=== PATIENT | female | born 1990 | race Caucasian/White ===

== ENCOUNTER 2018-06-09 16:53 | Emergency (ER) | payer OTHER ==
--- NOTE | 2018-06-09 17:07 | ED Physician Documentation ---
PD HPI FEMALE - Stated complaint Stated Complaint: FEM - Chief complaint Chief Complaint: UTI - History obtained from History obtained from: Patient - History of Present Illness Timing - onset: How many days ago (4-5) Timing - duration: Days (4-5) Timing - details: Gradual onset, Still present (worse the past 2 days, despite starting Macrobid 2 days ago. Using Azo without much relief.) Associated symptoms: Dysuria, Urinary frequency, Hematuria. No: Fever, Back pain, Vaginal pain, Vaginal discharge Contributing factors: Sexually active. No: Exposed to STD Similar symptoms before: Has not had sx before Recently seen: No: Clinic (Had Telemedicine consult with Rx of Macrobid and Phenazopyridine 2 days ago. 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 Vault with moderate thicker white discharge c/w yeast. No cervicitis. No appearance of BV. Swabs obtained. ) - Rectal Rectal: Deferred - Back Back: No CVA TTP - Derm Derm: Normal color, Warm and dry - Neuro Neuro: Alert and oriented X 3, No motor deficit, Normal speech Results - Vitals Vitals: Vital Signs - 24 hr 06/09/18 06/09/18 17:02 18:28 Temperature 36.4 C L 36.6 C Heart Rate 75 79 Respiratory 16 16 Rate Blood Pressure 123/65 108/82 H O2 Saturation 96 96 Oxygen O2 Source Room air - Labs Labs: Microbiology 06/09/18 18:10 Wet Prep - Final Genital - Vaginal Laboratory Tests 06/09/18 17:13 Urine Color DK. ORANGE Urine Clarity HAZY Urine pH Ur Specific [employer] Urine Protein Urine Glucose (UA) Urine Ketones Urine Occult Blood Urine Nitrite Urine Bilirubin Urine Urobilinogen Ur Leukocyte Esterase Urine RBC 0-5 Urine WBC 4-5 Ur Squamous Epith Cells MOD Squamous H Urine Bacteria Few Ur Microscopic Review INDICATED Urine Culture Comments NOT INDICATED PD MEDICAL DECISION MAKING - ED course Complexity details: considered differential (vag exam does appear c/w yeast vaginitis. UA not seeming positive, but does not have obvious vaginitis enough for symptoms. The Macrobid may be improving the UA enough but not clearing the infection per se. ), d/w patient - Sepsis Event Vital Signs: Vital Signs - 24 hr 06/09/18 06/09/18 17:02 18:28 Temperature 36.4 C L 36.6 C Heart Rate 75 79 Respiratory 16 16 Rate Blood Pressure 123/65 108/82 H O2 Saturation 96 96 Oxygen O2 Source Room air Departure - Departure Disposition: 01 Home, Self Care Clinical Impression: Dysuria, Yeast vaginitis Urinary tract infection Qualifiers: Urinary tract infection type: acute cystitis Hematuria presence: without hematuria Qualified Code(s): N30.00 - Acute cystitis without hematuria Instructions: ED UTI Cystitis Female Follow-Up: [facility] [Provider Group] [facility] [place] [facility] [Provider Group] Prescriptions: Sulfamethox/Trimeth 800/160 [Bactrim Ds 800/160] 1 each PO BID #14 tablet Comments: It does appear like some yeast infection vaginally. This can be more likely a result of the couple of days of antibiotics you have been on. It may actually be the cause of some of the dysuria he has been having. At this point with the continued discomfort urinating, I would change from the Macrobid antibiotic to slightly stronger one called Bactrim twice daily for 5-7 days until you are feeling all better. He can take a repeat fluconazole antifungal tablet at the end of that course. The vaginal exam does not look like a bacterial vaginitis but the cultures from that will result in about 3 days and will call you if we need to change antibiotics. Discharge Date/Time: 06/09/18 18:28
[2018-06-09 17:43] LABS: CLARITY,URINE HAZY (CLEAR)
[2018-06-09 17:45] LABS: RBC,URINE 0-5 /HPF (0-5); SQUAMOUS EPITHELIAL CELL,UR MOD Squamous (<= Few)
[2018-06-09 17:46] LABS: BACTERIA,URINE Few /HPF (None Seen)
[2018-06-09] MEDS ORDERED: SULFAMETH/TRIMETH DS 800/160 MG TABLET PO STA (18:14)
[2018-06-09] MEDS ORDERED: FLUCONAZOLE 100 MG TABLET PO STA (18:14)
[2018-06-09 18:29] VITALS: BP 108/82
== END 2018-06-09 18:28 | disposition home or self-care (01) ==
LOC: ED 16:53
DX: R30.0 Dysuria (principal); B37.3 Candidiasis of vulva and vagina; N30.00 Acute cystitis without hematuria
CPT/HCPCS: 81001; 87210; 87491; 87591; 99283; A9270; 81003; 81025; 87086

== ENCOUNTER 2018-10-30 11:24 | Outpatient (CLI) | payer MEDICAID ==
[2018-10-30 17:52] LABS: BASOPHILS % (AUTO) 0.6 %; EOSINOPHILS # (AUTO) 0.1 10^3/uL (0.0-0.7); EOSINOPHILS % (AUTO) 1.5 %; HGB - HEMOGLOBIN 14.2 g/dL (12.0-16.0); LYMPHOCYTES # (AUTO) 2.1 10^3/uL (1.5-3.5); LYMPHOCYTES % (AUTO) 40.9 %; MEAN CORPUSCULAR HEMOGLOBIN 30.9 pg (27.0-31.0); MEAN CORPUSCULAR VOLUME 93.6 fL (81.0-99.0); MEAN PLATELET VOLUME 8.8 fL (7.9-10.8); MONOCYTES # (AUTO) 0.4 10^3/uL (0.0-1.0); MONOCYTES % (AUTO) 8.3 %; NEUTROPHILS # (AUTO) 2.6 10^3/uL (1.5-6.6); NEUTROPHILS % (AUTO) 48.7 %; PLT - PLATELET COUNT 288 10^3/uL (130-450); RED CELL DISTRIBUTION WIDTH 12.9 % (12.0-15.0); WHITE BLOOD COUNT 5.3 x10^3/uL (4.8-10.8)
[2018-10-30 17:53] LABS: CALCIUM 9.1 mg/dL (8.5-10.3); CARBON DIOXIDE - CO2 29 mmol/L (21-32); CHLORIDE 104 mmol/L (101-111); GLUCOSE 80 mg/dL (70-100); SODIUM 137 mmol/L (135-145)
[2018-10-30 18:04] LABS: ALBUMIN 4.3 g/dL (3.2-5.5); ALBUMIN/GLOBULIN RATIO 1.5 (1.0-2.2); ALKALINE PHOSPHATASE 59 IU/L (42-121); ALT ALANINE AMINOTRANSFERASE 17 IU/L (10-60); AST ASPARTATE AMINOTRANSFERASE 14 IU/L (10-42); BILIRUBIN,TOTAL 0.7 mg/dL (0.2-1.0); BUN - BLOOD UREA NITROGEN 12 mg/dL (6-20); CHOL/HDL RATIO 3.8 (<4.4); CHOLESTEROL 176 mg/dL; CREATININE < 0.3 mg/dL (0.4-1.0); HCG,QUALITATIVE BLOOD NEGATIVE; HDL CHOLESTEROL 46 mg/dL; LDL CHOLESTEROL,CALCULATED 115 mg/dL; LDL/HDL RATIO 2.5 (<4.4); TOTAL PROTEIN 7.2 g/dL (6.7-8.2); VLDL CHOLESTEROL 15 mg/dL
[2018-10-30 18:33] LABS: HB2 TOTAL 15.4 g/dL; HEMOGLOBIN A1C 0.48 g/dL
[2018-10-31 13:37] LABS: HEPATITIS C ANTIBODY NON-REACTIVE (NON-REACTIVE)
[2018-11-01 19:07] LABS: ANA SCREEN POSITIVE (NEGATIVE)
== END 2018-10-30 11:25 | disposition home or self-care (01) ==
LOC: LAB.F 11:24
PROVIDERS: ATTEND Registered Nurse
DX: Z71.89 Other specified counseling (principal); R55 Syncope and collapse; M25.50 Pain in unspecified joint; F43.12 Post-traumatic stress disorder, chronic; R53.83 Other fatigue; R07.89 Other chest pain
CPT/HCPCS: 36415; 80050; 80061; 83036; 83721; 84703; 86038; 86803

== ENCOUNTER 2018-11-24 14:57 | Outpatient (CLI) | payer MEDICAID | END 2018-11-24 14:58 | disposition home or self-care (01) | LOC: DI 14:57 | PROVIDERS: ATTEND Registered Nurse | DX: R07.89 Other chest pain (principal); R55 Syncope and collapse; R53.83 Other fatigue | CPT/HCPCS: 93306 ==

== ENCOUNTER 2019-12-29 17:44 | Outpatient (CLI) | payer MEDICAID ==
--- NOTE | 2019-12-30 14:42 | XRAY Report ---
Reason: WORSENING BILAT JAW PAIN Procedure Date: 12/29/2019 Accession Number: [id number] / [id number] Procedure: XR - Cervical Spine Complete CPT Code: Final Report FULL RESULT: EXAM: CERVICAL SPINE RADIOGRAPHY EXAM DATE: 12/29/2019 06:31 PM. CLINICAL HISTORY: WORSENING BILAT JAW PAIN. COMPARISONS: XR CERVICAL SPINE 2 VIEW 09/05/2019 11:54 AM. TECHNIQUE: 5 views. 7 films FINDINGS: Alignment: Generalized cervical kyphosis. Appearance is similar to prior exam. 12 degrees convex right cervical scoliosis. Mild convex left upper thoracic scoliosis. Bones: The cervical vertebral bodies and posterior elements are well-visualized from the skull base through C7-T1. No radiographic evidence for fractures or bone lesions. Disks: Normal. Disk heights are maintained. Facets: Hypertrophic changes at C7-T1 level. Neural Foramina: The neural foramina have bony patency bilaterally. Soft Tissues: Normal. No prevertebral soft tissue swelling. The visualized lung apices are clear. IMPRESSION: 1. C7-T1 facet joint degenerative changes. 2. Scoliosis. RADIA
--- NOTE | 2019-12-30 14:44 | XRAY Report ---
Reason: WORSENING BILAT JAW PAIN Procedure Date: 12/29/2019 Accession Number: [id number] / [id number] Procedure: XR - TMJ's-Temporal Mandibular Jts CPT Code: 22000 Final Report FULL RESULT: EXAM: BILATERAL TEMPOROMANDIBULAR JOINT RADIOGRAPHY EXAM DATE: 12/29/2019 06:31 PM. CLINICAL HISTORY: WORSENING BILAT JAW PAIN. COMPARISON: None. TECHNIQUE: 6 views including open and closed mouth. FINDINGS: Bones: Normal. No fractures or bone lesions. Temporomandibular Joints: Normal. The temporomandibular joints are normally located and symmetric. Sinuses: Normal. No opacities or fluid levels. Other: Normal. No soft tissue swelling. IMPRESSION: Normal temporomandibular joint radiography. If there is persistent clinical concern, consider MRI. RADIA
== END 2019-12-29 17:45 | disposition home or self-care (01) ==
LOC: DI 17:44
DX: M47.813 Spondylosis without myelopathy or radiculopathy, cervicothoracic region (principal); M41.9 Scoliosis, unspecified; R68.84 Jaw pain
CPT/HCPCS: 70330; 72050

== ENCOUNTER 2020-11-11 09:12 | Outpatient (CLI) | payer MEDICAID | END 2020-11-11 09:13 | disposition home or self-care (01) | LOC: COV 09:12 | DX: R50.9 Fever, unspecified (principal); M79.10 Myalgia, unspecified site; R11.0 Nausea; Z20.828 Contact with and (suspected) exposure to other viral communicable diseases ==

== ENCOUNTER 2022-10-22 19:55 | Emergency (ER) | payer MEDICAID ==
[2022-10-22 20:48] LABS: BASOPHILS % (AUTO) 0.4 %; EOSINOPHILS # (AUTO) 0.1 10^3/uL (0.0-0.7); EOSINOPHILS % (AUTO) 0.9 %; HCT - HEMATOCRIT 39.8 % (37.0-47.0); HGB - HEMOGLOBIN 13.1 g/dL (12.0-16.0); LYMPHOCYTES % (AUTO) 26.4 %; MEAN CORPUSCULAR HEMOGLOBIN 29.4 pg (27.0-31.0); MEAN CORPUSCULAR HGB CONC 32.9 g/dL (32.0-36.0); MEAN CORPUSCULAR VOLUME 89.4 fL (81.0-99.0); MEAN PLATELET VOLUME 9.6 fL (7.9-10.8); MONOCYTES # (AUTO) 0.9 10^3/uL (0.0-1.0); MONOCYTES % (AUTO) 7.8 %; NEUTROPHILS # (AUTO) 7.3 10^3/uL (1.5-6.6); NEUTROPHILS % (AUTO) 64.1 %; PLT - PLATELET COUNT 357 10^3/uL (130-450); RED BLOOD COUNT 4.45 10^6/uL (4.20-5.40); RED CELL DISTRIBUTION WIDTH 12.5 % (12.0-15.0); WHITE BLOOD COUNT 11.4 x10^3/uL (4.8-10.8)
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
[2022-10-22 21:08] LABS: ALBUMIN 4.2 g/dL (3.2-5.5); ALBUMIN/GLOBULIN RATIO 1.4 (1.0-2.2); BILIRUBIN,TOTAL 0.4 mg/dL (0.2-1.0); CALCIUM 9.6 mg/dL (8.5-10.3); CREATININE 0.9 mg/dL (0.4-1.0); POTASSIUM 3.9 mmol/L (3.5-5.0); TOTAL PROTEIN 7.1 g/dL (6.7-8.2)
--- NOTE | 2022-10-22 21:09 | XRAY Report ---
PROCEDURE: Chest 1 View X-Ray INDICATIONS: Chest Pain TECHNIQUE: One view of the chest was acquired. COMPARISON: None. FINDINGS: Surgical changes and devices: None. Lungs and pleura: No pleural effusions or pneumothorax. Lungs are clear. Mediastinum: Mediastinal contours appear normal. Heart size is normal. Bones and chest wall: No suspicious bony lesions. Overlying soft tissues appear unremarkable. IMPRESSION: 1. No acute cardiopulmonary disease. Reviewed by: Shar Bryant MD on 10/22/2022 9:08 PM [facility] Approved by: Shar Bryant MD on 10/22/2022 9:08 PM [facility] Station ID: [id number]
[2022-10-22 21:52] VITALS: BP 106/61
== END 2022-10-22 21:53 | disposition home or self-care (01) ==
LOC: ED 19:55
DX: R07.89 Other chest pain (principal)
CPT/HCPCS: 36415; 80053; 83690; 84484; 85025; 93005; 99282; 99284

== ENCOUNTER 2023-07-05 13:21 | Outpatient (CLI) | payer MEDICAID ==
[2023-07-05 20:36] LABS: BILIRUBIN,URINE NEGATIVE (NEGATIVE); GLUCOSE, URINE (UA) NEGATIVE (NEGATIVE); KETONES,URINE (UA) NEGATIVE (NEGATIVE); LEUKOCYTE ESTERASE, URINE TRACE (NEGATIVE); NITRITE,URINE NEGATIVE (NEGATIVE); OCCULT BLOOD,URINE TRACE-INTA (NEGATIVE); PROTEIN,URINE NEGATIVE (NEGATIVE); UROBILINOGEN,URINE 0.2 (NORMAL) E.U./dL (NORMAL)
[2023-07-05 20:37] LABS: CLARITY,URINE HAZY (CLEAR)
[2023-07-05 21:35] LABS: BACTERIA,URINE Rare /HPF (None Seen); RBC,URINE 0-5 /HPF (0-5); SQUAMOUS EPITHELIAL CELL,UR RARE Squamous (<= Few); WBC,URINE >25 /HPF (0-5)
== END 2023-07-05 13:22 | disposition home or self-care (01) ==
LOC: LAB.S 13:21
PROVIDERS: ATTEND Family Medicine
DX: R39.9 Unspecified symptoms and signs involving the genitourinary system (principal)
CPT/HCPCS: 81001; 87077; 87086

== ENCOUNTER 2023-09-03 12:41 | Outpatient (CLI) | payer MEDICAID ==
[2023-09-03 21:30] LABS: CHLAMYDIA TRACHOMATIS DNA NEGATIVE (NEGATIVE); NEISSERIA GONORRHOEAE DNA NEGATIVE (NEGATIVE); TRICHOMONAS VAGINALIS DNA NEGATIVE (NEGATIVE)
[2023-09-04 02:08] LABS: HBsAG SCREEN Negative (Negative); HEPATITIS B SURFACE AB QUANT <3.1 mIU/mL (Immunity>9.9)
[2023-09-04 03:09] LABS: HCV AB Non Reactive (Non Reactive); HIV SCREEN 4TH GENERATION Non Reactive (Non Reactive)
[2023-09-04 17:09] LABS: TREPONEMA PALLIDUM ANTIBODIES Non Reactive (Non Reactive)
== END 2023-09-03 12:42 | disposition home or self-care (01) ==
LOC: LAB.S 12:41
PROVIDERS: ATTEND Family Medicine
DX: Z20.2 Contact with and (suspected) exposure to infections with a predominantly sexual mode of transmission (principal)
CPT/HCPCS: 36415; 86317; 86780; 86803; 87340; 87389; 87491; 87591; 87661

== ENCOUNTER 2023-10-25 12:08 | Outpatient (CLI) | payer MEDICAID ==
[2023-10-25 15:23] LABS: ALBUMIN 4.8 g/dL (3.2-5.5); ALBUMIN/GLOBULIN RATIO 1.8 (1.0-2.2); ALKALINE PHOSPHATASE 83 IU/L (42-121); ALT ALANINE AMINOTRANSFERASE 17 IU/L (10-60); AST ASPARTATE AMINOTRANSFERASE 12 IU/L (10-42); BILIRUBIN,TOTAL 0.4 mg/dL (0.2-1.0); BUN - BLOOD UREA NITROGEN 11 mg/dL (6-20); CALCIUM 9.8 mg/dL (8.5-10.3); CARBON DIOXIDE - CO2 28 mmol/L (21-32); CHLORIDE 102 mmol/L (101-111); CHOL/HDL RATIO 3.6 (<4.4); CHOLESTEROL 178 mg/dL; CREATININE 0.8 mg/dL (0.6-1.3); GFR - MDRD 84 (>89); GLUCOSE 120 mg/dL (74-104); HDL CHOLESTEROL 49 mg/dL; LDL CHOLESTEROL,CALCULATED 96 mg/dL; POTASSIUM 4.1 mmol/L (3.5-4.5); SODIUM 136 mmol/L (135-145); TOTAL PROTEIN 7.4 g/dL (6.4-8.9); TRIGLYCERIDES 167 mg/dL (48-352); VLDL CHOLESTEROL 33 mg/dL
[2023-10-25 15:24] LABS: BASOPHILS # (AUTO) 0.1 10^3/uL (0.0-0.1); BASOPHILS % (AUTO) 0.6 %; EOSINOPHILS # (AUTO) 0.1 10^3/uL (0.0-0.7); EOSINOPHILS % (AUTO) 0.9 %; HCT - HEMATOCRIT 43.7 % (37.0-47.0); HGB - HEMOGLOBIN 14.2 g/dL (12.0-16.0); LYMPHOCYTES # (AUTO) 2.5 10^3/uL (1.5-3.5); MEAN CORPUSCULAR HEMOGLOBIN 29.5 pg (27.0-31.0); MEAN CORPUSCULAR HGB CONC 32.5 g/dL (32.0-36.0); MEAN CORPUSCULAR VOLUME 90.7 fL (81.0-99.0); MEAN PLATELET VOLUME 10.4 fL (7.9-10.8); MONOCYTES # (AUTO) 0.6 10^3/uL (0.0-1.0); MONOCYTES % (AUTO) 7.6 %; NEUTROPHILS # (AUTO) 4.9 10^3/uL (1.5-6.6); NEUTROPHILS % (AUTO) 60.5 %; PLT - PLATELET COUNT 392 10^3/uL (130-450); RED BLOOD COUNT 4.82 10^6/uL (4.20-5.40); RED CELL DISTRIBUTION WIDTH 12.8 % (12.0-15.0); WHITE BLOOD COUNT 8.2 x10^3/uL (4.8-10.8)
== END 2023-10-25 12:09 | disposition home or self-care (01) ==
LOC: LAB.S 12:08
PROVIDERS: ATTEND Family Medicine
DX: Z00.00 Encounter for general adult medical examination without abnormal findings (principal)
CPT/HCPCS: 36415; 80050; 80061; 82306; 83721

== ENCOUNTER 2024-02-26 14:46 | Outpatient (CLI) | payer MEDICAID ==
[2024-02-26 20:13] LABS: THYROID STIMULATING HORMONE 1.79 uIU/mL (0.34-5.60)
[2024-02-26 20:19] LABS: PROLACTIN 8.9 ng/mL
== END 2024-02-26 14:47 | disposition home or self-care (01) ==
LOC: LAB 14:46 → LAB.S 14:47
PROVIDERS: ATTEND Family Medicine
DX: N83.209 Unspecified ovarian cyst, unspecified side (principal)
CPT/HCPCS: 36415; 82627; 84146; 84402; 84403; 84443